=== PATIENT | female | born 1990 | race African-American/Black ===

== ENCOUNTER 2021-03-29 16:56 | Observation (INO) | payer OTHER ==
[~2021-03-29] VITALS: Ht 170.2 cm; Wt 136.1 kg
[2021-03-29] MEDS ORDERED: LACTATED RINGERS 1,000 ML IV SCH (18:00)
[2021-03-29 18:02] LABS: COLOR URINE YELLOW (YELLOW); KETONES URINE NEGATIVE (NEGATIVE); LEUKOCYTE ESTERASE URINE NEGATIVE (NEGATIVE); NITRITE URINE NEGATIVE (NEGATIVE); OCCULT BLOOD URINE NEGATIVE (NEGATIVE); PH URINE 6.5 (4.5-8.0); PROTEIN URINE NEGATIVE (NEGATIVE); SPECIFIC GRAVITY URINE 1.027 (1.005-1.030); UROBILINOGEN URINE 0.2 E.U./dL (0.2-1.0)
[2021-03-29 18:06] LABS: CLARITY URINE SLIGHTLY HAZY (CLEAR)
== END 2021-03-29 20:05 | disposition home or self-care (01) ==
LOC: 8 EST A/PP 16:56
PROVIDERS: ADMIT Obstetrics & Gynecology; ATTEND Obstetrics & Gynecology
DX: O26.893 Other specified pregnancy related conditions, third trimester (principal); R10.30 Lower abdominal pain, unspecified; Z3A.28 28 weeks gestation of pregnancy
CPT/HCPCS: 59025; 76805; 76818; 81003; 82731; 96360; G0378; 96361; 99281; J7120

== ENCOUNTER 2021-06-16 15:46 | Inpatient (IN) | payer OTHER ==
[~2021-06-16] VITALS: Ht 170.2 cm; Wt 141.1 kg
[2021-06-16] MEDS ORDERED: LIDOCAINE HCL 1% 20ML VIAL (Pyxis) INJ INFIL SCH (18:30)
[2021-06-16] MEDS ORDERED: NALOXONE HCL 0.4 MG/ML 1ML VIAL IM PRN (18:30)
[2021-06-16] MEDS ORDERED: CARBOPROST TROMETHAMINE 250 MCG/ML AMPUL IM PRN (18:30)
[2021-06-16] MEDS ORDERED: BUTORPHANOL TARTRATE 2 MG/ML VIAL IV PRN (18:30)
[2021-06-16] MEDS ORDERED: METHYLERGONOVINE MALEATE 0.2 MG/ML IM PRN (18:30)
[2021-06-16 18:53] LABS: BASOPHILS % 0.3 % (0.0-2.0); EOSINOPHILS % 1.2 % (0.0-5.0); HEMATOCRIT. 32.4 % (36.0-48.0); HEMOGLOBIN. 10.9 g/dL (12.0-16.0); LYMPHOCYTES % 28.6 % (20.0-50.0); MEAN CORPUSCULAR HEMOGLOBIN 30.3 pg (28.0-32.0); MEAN CORPUSCULAR VOLUME 90.5 fL (81.0-99.0); MEAN PLATELET VOLUME 8.9 fl (7.4-10.4); MONOCYTES % 4.7 % (2.0-8.0); NEUTROPHILS % 65.2 % (40.0-76.0); PLATELET 201 x1000/uL (130-400); RED BLOOD CELL COUNT 3.58 mill/uL (4.2-5.4); RED CELL DISTRIBUTION WIDTH 15.9 % (11.6-14.6)
[2021-06-16] MEDS ORDERED: PENICILLIN G POTASSIUM 5 MMU in DEXT 5% WATER 100 ML IV NR (19:00)
[2021-06-16 19:07] LABS: *BENZODIAZEPINES SCREEN URINE NEGATIVE (NEGATIVE); CANNABINOID URINE SCREEN NEGATIVE (NEGATIVE); PHENCYCLIDINE URINE SCREEN NEGATIVE (NEGATIVE)
[2021-06-16 19:08] LABS: *AMPHETAMINES SCREEN URINE NEGATIVE (NEGATIVE); *BARBITURATES SCREEN URINE NEGATIVE (NEGATIVE); *COCAINE SCREEN URINE NEGATIVE (NEGATIVE); METHADONE URINE SCREEN NEGATIVE (NEGATIVE); OPIATES URINE SCREEN NEGATIVE (NEGATIVE)
[2021-06-16 19:20] LABS: INR 0.9; PROTHROMBIN TIME 9.9 sec (9.6-11.0)
[2021-06-16 19:36] LABS: HEPATITIS B SURFACE ANTIGEN NEGATIVE
[2021-06-16] MEDS: LACTATED RINGERS 1,000 ML IV SCH ×2 (20:23→23:53)
[2021-06-16] MEDS: DEXT 5%/LR + PITOCIN 20UNITS/L 1,000 ML IV SCH (22:22)
[2021-06-17] MEDS: PENICILLIN G POTASSIUM 2.5 MMU in DEXTROSE 5% WATER 50 ML IV SCH ×4 (03:14→17:01)
[2021-06-17] MEDS: LACTATED RINGERS 1,000 ML IV SCH ×3 (05:00→11:36)
[2021-06-17] MEDS ORDERED: ROPIVACAINE HCL/PF EPIDURAL 200 ML EPI ONE (05:05)
[2021-06-17] MEDS ORDERED: BUPIVACAINE HCL/PF 0.25% (2.5MG/ML) 10ML ONE (05:05)
[2021-06-17] MEDS ORDERED: FENTANYL CITRATE/PF 50MCG/ML 2ML VIAL ONE (05:05)
[2021-06-17] MEDS ORDERED: LIDOCAINE HCL 2%/EPINEPHRINE 1:100,000 20 ML VIAL INFIL ONE (08:00)
[2021-06-17] MEDS: DEXT 5%/LR + PITOCIN 20UNITS/L 1,000 ML IV SCH (19:51)
[2021-06-17] MEDS ORDERED: DEXT 5%/LR + PITOCIN 20UNITS/L 1,000 ML IV SCH (20:30)
[2021-06-17] MEDS ORDERED: LANOLIN OINT 7GM TUBE TOP PRN (20:30)
[2021-06-17] MEDS ORDERED: ACETAMINOPHEN WITH CODEINE 300/30MG TABLET PO PRN (20:30)
[2021-06-17] MEDS ORDERED: ACETAMINOPHEN 500MG TABLET PO PRN ×2 (20:30)
[2021-06-17] MEDS ORDERED: GLYCERIN/WITCH HAZEL LEAF MEDICATED PAD TOP PRN (20:30)
[2021-06-17] MEDS ORDERED: BISACODYL 10MG SUPP PR PRN (20:30)
[2021-06-17] MEDS ORDERED: IBUPROFEN 400MG TABLET PO PRN (20:30)
[2021-06-17 21:15] VITALS: BP 126/80
[2021-06-17] MEDS ORDERED: BENZOCAINE/LANOLIN/ALOE VERA SPRAY TOP PRN (21:45)
[2021-06-17 22:00] VITALS: BP 129/75
[2021-06-17] MEDS: IBUPROFEN 800MG TABLET PO PRN (23:17)
[2021-06-18 03:30] VITALS: BP 111/63
[2021-06-18 07:30] VITALS: BP 122/73
[2021-06-18 07:54] LABS: BASOPHILS % 0.4 % (0.0-2.0); EOSINOPHILS % 0.6 % (0.0-5.0); HEMATOCRIT. 29.8 % (36.0-48.0); LYMPHOCYTES % 22.3 % (20.0-50.0); MEAN CORPUSCULAR HEMOGLOBIN 30.2 pg (28.0-32.0); MEAN CORPUSCULAR VOLUME 90.3 fL (81.0-99.0); MEAN PLATELET VOLUME 8.5 fl (7.4-10.4); MONOCYTES % 7.2 % (2.0-8.0); NEUTROPHILS % 69.5 % (40.0-76.0); PLATELET 179 x1000/uL (130-400); RED CELL DISTRIBUTION WIDTH 15.8 % (11.6-14.6)
[2021-06-18] MEDS: IBUPROFEN 800MG TABLET PO PRN ×3 (08:34→23:49)
[2021-06-18] MEDS: FERROUS SULFATE 325MG TABLET PO SCH ×3 (08:34→17:44)
[2021-06-18] MEDS: PRENATAL VIT/FE FUMARATE/FA TABLET PO SCH (08:37)
[2021-06-18 12:00] VITALS: BP 138/91
[2021-06-18 16:07] VITALS: BP 117/60
[2021-06-18 20:00] VITALS: BP 130/77
[2021-06-19 04:00] VITALS: BP 116/77
[2021-06-19] MEDS: IBUPROFEN 800MG TABLET PO PRN (06:19)
[2021-06-19 07:30] VITALS: BP 130/85
[2021-06-19] MEDS: FERROUS SULFATE 325MG TABLET PO SCH (07:46)
[2021-06-19] MEDS: PRENATAL VIT/FE FUMARATE/FA TABLET PO SCH (07:46)
[2021-06-19] MEDS ORDERED: IBUP-2030 PO (08:25)
[2021-06-19] MEDS ORDERED: FERR-63 PO (08:25)
[2021-06-19] MEDS ORDERED: MULT-1116 MT (08:25)
== END 2021-06-19 12:15 | disposition home or self-care (01) | DRG 560 ==
LOC: OBSVTOIN 15:46 → 8 EST LDRP 15:46 → 8EST 06-17 21:10
PROVIDERS: ADMIT Obstetrics & Gynecology; ATTEND Obstetrics & Gynecology
PROC: 10E0XZZ Delivery of Products of Conception, External Approach (ICD-10-PCS; principal; 2021-06-17)
PROC: 3E0R3BZ Introduction of Anesthetic Agent into Spinal Canal, Percutaneous Approach (ICD-10-PCS; 2021-06-17)
PROC: 00HU33Z Insertion of Infusion Device into Spinal Canal, Percutaneous Approach (ICD-10-PCS; 2021-06-17)
PROC: 0UQMXZZ Repair Vulva, External Approach (ICD-10-PCS; 2021-06-17)
DX: O77.0 Labor and delivery complicated by meconium in amniotic fluid (principal); Z37.0 Single live birth; O71.82 Other specified trauma to perineum and vulva; Z20.822 Contact with and (suspected) exposure to COVID-19; O99.02 Anemia complicating childbirth; Z3A.40 40 weeks gestation of pregnancy
CPT/HCPCS: 36415; 76805; 76818; 80305; 85025; 86592; 86703; 86762; 86850; 86900; 87340; 87426; 99281; G0378; J0595; J2540; J2590; J2795; J3010; J3490; J7060; A4315

== ENCOUNTER 2021-06-25 06:15 | Emergency (ER) | payer OTHER ==
[~2021-06-25] VITALS: Ht 170.2 cm; Wt 136.0 kg
[~2021-06-25 06:15] MED LIST: FERR-63 PO; IBUP-2030 PO; MULT-1116 MT
[2021-06-25 09:59] LABS: BASOPHILS % 0.4 % (0.0-2.0); EOSINOPHILS % 0.9 % (0.0-5.0); HEMATOCRIT. 32.7 % (36.0-48.0); HEMOGLOBIN. 10.7 g/dL (12.0-16.0); LYMPHOCYTES % 16.3 % (20.0-50.0); MEAN CORPUSCULAR HEMOGLOBIN 29.8 pg (28.0-32.0); MEAN CORPUSCULAR VOLUME 91.3 fL (81.0-99.0); MONOCYTES % 3.3 % (2.0-8.0); NEUTROPHILS % 79.1 % (40.0-76.0); PLATELET 335 x1000/uL (130-400); RED BLOOD CELL COUNT 3.58 mill/uL (4.2-5.4); RED CELL DISTRIBUTION WIDTH 16.8 % (11.6-14.6)
[2021-06-25 10:05] LABS: CHLORIDE 107 mEq/L (98-107)
[2021-06-25 10:35] LABS: CLARITY URINE CLOUDY (CLEAR); COLOR URINE ORANGE (YELLOW); KETONES URINE 1+ (NEGATIVE); LEUKOCYTE ESTERASE URINE 2+ (NEGATIVE); NITRITE URINE NEGATIVE (NEGATIVE); OCCULT BLOOD URINE 3+ (NEGATIVE); PH URINE 5.5 (4.5-8.0); PROTEIN URINE 2+ (NEGATIVE); SPECIFIC GRAVITY URINE 1.028 (1.005-1.030); UROBILINOGEN URINE 0.2 E.U./dL (0.2-1.0)
[2021-06-25] MEDS ORDERED: IOHEXOL-300 100 ML BOTTLE ONE (15:00)
[2021-06-25 16:30] VITALS: BP 125/80
[2021-06-25] MEDS ORDERED: ACETAMINOPHEN 325MG TABLET PO ONE (16:45)
== END 2021-06-25 16:44 | disposition home or self-care (01) ==
LOC: ER 06:15
DX: R10.84 Generalized abdominal pain (principal); J45.909 Unspecified asthma, uncomplicated
CPT/HCPCS: 36415; 74177; 76856; 80048; 80076; 81003; 83690; 85025; 87086; 93005; 99285; Q9967

== ENCOUNTER 2022-12-14 19:15 | Observation (INO) | payer OTHER ==
[~2022-12-14] VITALS: Ht 157.5 cm; Wt 137.0 kg
[2022-12-14] MEDS ORDERED: LACTATED RINGERS 1,000 ML IV ONE (20:30)
[2022-12-14] MEDS ORDERED: PREN1TAB23 PO (22:06)
== END 2022-12-14 22:20 | disposition home or self-care (01) ==
LOC: 8 EST LDRP 19:15
PROVIDERS: ADMIT Obstetrics & Gynecology; ATTEND Obstetrics & Gynecology
DX: O26.893 Other specified pregnancy related conditions, third trimester (principal); R10.9 Unspecified abdominal pain; Z3A.32 32 weeks gestation of pregnancy
CPT/HCPCS: 59025; 99281; 76818; 76805; G0378 ×2